=== PATIENT | female | born 1995 | race Two or more races ===

== ENCOUNTER 2021-03-10 09:56 | Outpatient (REF) | payer OTHER, SELFPAY ==
[2021-03-10 13:17] LABS: Thyroid Stimulating Hormone 0.42 uIU/mL (0.32-4.0)
[2021-03-10 15:19] LABS: CT PCR NOT DETECTED (Not Detect.); NG PCR NOT DETECTED (Not Detect.)
[2021-03-11 12:34] LABS: BV Int Neg Control Negative (Negative); BV Int Pos Control Positive (Positive)
[2021-03-13 14:52] LABS: DHEA Sulfate 121 mcg/dL (18-391)
[2021-03-13 20:26] LABS: Prolactin 8.3 ng/mL
[2021-03-16 09:18] LABS: Testosterone, Free 1.8 pg/mL (0.1-6.4); Testosterone, Total 12 ng/dL (2-45)
== END 2021-03-10 09:57 | disposition home or self-care (01) ==
LOC: HO.LAB 09:56
PROVIDERS: PCP Family Medicine; Visit Provider Advanced Practice Midwife
DX: Z01.411 Encounter for gynecological examination (general) (routine) with abnormal findings (principal); R10.2 Pelvic and perineal pain; N92.6 Irregular menstruation, unspecified; L68.0 Hirsutism; Z20.2 Contact with and (suspected) exposure to infections with a predominantly sexual mode of transmission
CPT/HCPCS: 36415; 81003; 81025; 82627; 83498; 84146; 84402; 84403; 84443; 87480; 87491; 87510; 87591; 87660; 88142

== ENCOUNTER 2021-05-08 16:06 | Outpatient (REF) | payer OTHER, SELFPAY ==
--- NOTE | ~2021-05-08 | US_ITS ---
EXAMINATION: PELVIC ULTRASOUND CLINICAL INFORMATION: Hirsutism COMPARISON: None TECHNIQUE: Transabdominal and transvaginal pelvic ultrasound was performed. Transvaginal exam was performed for better visualization of the uterus and ovaries. FINDINGS: The uterus is anteverted and measures 7.3 x 3.5 x 4.5 cm in dimension. No focal uterine lesion is seen. Endometrial thickness is normal measuring 1.1 cm. The ovaries are normal in size. The right ovary measures 3 x 2.3 x 3 cm, volume 11 mL. The left ovary measures 3.1 x 2.2 x 2.4 cm, volume 9 mL. There are multiple small peripheral cysts or follicles seen in both ovaries with polycystic appearance. There is no fluid in the pelvis. US/US pelvic and transvaginal IMPRESSION: Polycystic appearance of the ovaries.
== END 2021-05-08 16:07 | disposition home or self-care (01) ==
LOC: HO.US 16:06
PROVIDERS: Visit Provider Advanced Practice Midwife
DX: L68.0 Hirsutism (principal); N92.6 Irregular menstruation, unspecified
CPT/HCPCS: 76830; 76856

== ENCOUNTER → 2021-07-14 11:17 | Outpatient (BNVA) | payer OTHER, SELFPAY | PROVIDERS: Visit Provider Advanced Practice Midwife ==

== ENCOUNTER → 2021-08-09 15:54 | Outpatient (BNVA) | payer OTHER, SELFPAY | PROVIDERS: Visit Provider Advanced Practice Midwife ==

== ENCOUNTER → 2021-12-28 10:01 | Outpatient (BNVA) | payer OTHER, SELFPAY | PROVIDERS: PCP Hospitalist; Visit Provider Advanced Practice Midwife | DX: Z32.02 Encounter for pregnancy test, result negative (principal); Z51.81 Encounter for therapeutic drug level monitoring; Z30.41 Encounter for surveillance of contraceptive pills; L70.9 Acne, unspecified; L65.9 Nonscarring hair loss, unspecified; Z79.899 Other long term (current) drug therapy | CPT/HCPCS: 81025; 99212 ==

== ENCOUNTER 2022-03-14 09:48 | Outpatient (REF) | payer OTHER, SELFPAY ==
--- NOTE | ~2022-03-14 | US_ITS ---
EXAMINATION: US PELVIS CLINICAL INFORMATION: Pelvic and perineal pain. COMPARISON: None TECHNIQUE: Ultrasound of the pelvis is performed using both transabdominal and transvaginal transducers along with Doppler. Transvaginal imaging is performed due to inadequate visualization transabdominally. FINDINGS: Uterus: The uterus is anteverted, anteflexed and measures 7.9 x 4.2 x 5.8 cm. The double wall endometrial thickness is 5 mm. The uterus is smooth in contour and has normal myometrial echogenicity. No visible fibroid. Adnexa: Both ovaries are visualized. There is normal color-flow to the adnexa. There is no ovarian torsion. There is no pelvic ascites or fluid collection. Right ovary measures 3.9 x 3.1 x 4.1 and volume 26.2 mL. There is a corpus luteal cyst measuring 3.1 x 2.5 x 3.2 cm. Left ovary measures 2.9 x 1.7 x 1.8 and volume 4.8 mL. There is no free fluid in the cul-de-sac. US/US pelvic and transvaginal IMPRESSION: Small corpus luteal cyst in the right right ovary. Unremarkable uterus.
[2022-03-14 18:21] LABS: CT PCR NOT DETECTED (Not Detect.); NG PCR NOT DETECTED (Not Detect.)
[2022-03-15 11:15] LABS: BV Int Neg Control Negative (Negative); BV Int Pos Control Positive (Positive)
== END 2022-03-14 09:49 | disposition home or self-care (01) ==
LOC: HO.LAB 09:48
PROVIDERS: PCP Hospitalist; Visit Provider Advanced Practice Midwife
DX: Z30.41 Encounter for surveillance of contraceptive pills (principal); R10.2 Pelvic and perineal pain; Z20.2 Contact with and (suspected) exposure to infections with a predominantly sexual mode of transmission; N92.6 Irregular menstruation, unspecified; L29.2 Pruritus vulvae; L70.9 Acne, unspecified; R35.0 Frequency of micturition
CPT/HCPCS: 76830; 76856; 81003; 87480; 87491; 87510; 87591; 87660

== ENCOUNTER 2022-03-14 10:58 | Outpatient (REF) | payer OTHER, SELFPAY | END 2022-03-14 10:59 | disposition home or self-care (01) | LOC: HO.US 10:58 | PROVIDERS: Visit Provider Advanced Practice Midwife | DX: Z13.89 Encounter for screening for other disorder (principal) ==

== ENCOUNTER 2023-05-08 14:33 | Outpatient (REF) | payer OTHER, SELFPAY ==
[2023-05-09 11:19] LABS: CT PCR NOT DETECTED (Not Detect.); NG PCR NOT DETECTED (Not Detect.)
== END 2023-05-08 14:34 | disposition home or self-care (01) ==
LOC: HO.LNP 14:33
PROVIDERS: PCP Hospitalist; Visit Provider Advanced Practice Midwife
DX: Z11.3 Encounter for screening for infections with a predominantly sexual mode of transmission (principal)
CPT/HCPCS: 0353U

== ENCOUNTER 2023-05-08 14:33 | Outpatient (AMB) | payer OTHER, SELFPAY ==
--- NOTE | 2023-05-08 14:47 | A.OFFVIS_ITS ---
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 Scribed for MODESTA Mcdonough by Nicole Martinez, biomedical engineer, on 05/08/2023 at 3:06 pm EST. 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 She stopped taking POP's because she believes it caused bloating, and now is and trying for 5 months to conceive. Has been having regular menses every 35 days and tracking them for the past few months. History of PCOS. She admits to eating healthy and tries to stay active with exercise. Denies vaginal itching and irritation. STD screening offered; she accepts. Denies family hx of breast, colon and ovarian cancer. 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 [employer] Sexual orientation: Straight/Heterosexual Gender identity: Female Female Reproductive History Menstrual Age of Menarche: 12 Duration of menses: 3-5 days Date of last menstrual period: 04/30/23 control method: none Total pregnancies: 1 Ab induced: 1 Date of last pap smear: 03/13/21 (negative) Physical Exam Vital Signs: Last Vital Signs BP 94/56 L 05/08/23 14:49 BMI result Body Mass Index 24.9 Const General: cooperative, healthy appearing, no acute distress, well developed and alert Orientation/consciousness: patient oriented x3 HEENT Head: Yes normal to inspection Eyes General: appearance normal, both eyes and all related structures Neck Neck: Yes normal visual inspection Thyroid: Thyroid normal Chest Chest palpation & inspection: normal inspection of the chest Breast/axilla inspection: normal inspection of the breasts (no puckering, dimpling, peau de orange, retraction, discharge, masses) Breast/axilla palpation: normal palpation of the breasts Resp Effort & Inspection: normal respiratory effort GI Inspection: Yes normal to inspection Palpation (GI): Soft to palpation (to palpation) Rectal Exam - Female: deferred General: Yes bladder normal to inspection External Female Exam: normal external appearance and normal appearance of the urethra Speculum Exam - Vagina: normal appearance of the vagina, normal palpation and normal vaginal discharge Speculum Exam - Cervix: normal appearance of the cervix and normal palpation Bimanual exam- vagina & uterus: normal palpation and normal palpation Bimanual Exam- Adnexa, other: normal adnexae and no masses Skin General skin exam: no rashes or lesions noted Neuro General: patient oriented x3 Cognition (Neuro): normal cognition Extrem General: Yes normal to inspection Psych Attitude: cooperative Thought process: Normal thought process present Assessment & Plan Assessment & Plan (1) Encounter for well woman exam: Code(s): Z01.419 - Encounter for gynecological examination (general) (routine) without abnormal findings Plan: Discussed: Current recommendations for pap smears per ASCCP guidelines Breast awareness and periodic self breast exams. Maintaining a healthy lifestyle including a well balanced diet and routine exercise. Instructed to start PNV. Rx sent to pharmacy. Will consider infertility consult at [facility] if not successful after one year. Not currently covered by her insurance, is considering another insurance plan. Contact insurance for coverage of benefits. Referral if needed in the future. All of her questions and concerns were addressed to the best of my ability. RTO in one year for AG. (2) Pre-conception counseling: Code(s): Z31.69 - Encounter for other general counseling and advice on procreation Orders: Orders CT NG by PCR Today Z01.419 - Encounter for gynecological examination (general) (routine) without abnormal findings Coding Level of Care Code Est Pt Prev Care [id number]) Diagnoses Encounter for well woman exam Z01.419 Pre-conception counseling Z31.69
[2023-05-08 14:49] VITALS: BP 94/56; BMI 24.9
== END 2023-05-08 15:54 | disposition home or self-care (01) ==
LOC: HO.HWS 14:33
PROVIDERS: PCP Hospitalist; Visit Provider Advanced Practice Midwife
DX: Z01.419 Encounter for gynecological examination (general) (routine) without abnormal findings (principal)
CPT/HCPCS: 99395